=== PATIENT | female | born 1960 | race Caucasian/White ===

== ENCOUNTER 2019-03-28 23:02 | Emergency (ER) | payer SELFPAY ==
--- NOTE | 2019-03-28 23:28 | ER Document Report ---
ED General - General Stated Complaint: POSSIBLE OVERDOSE Time Seen by Provider: 03/28/19 23:12 Notes: She is a 58-year-old female who comes in overdosing on Klonopin and drinking some alcohol. Patient says that she is been going through divorce for 3 years. She says her continues to arouse her. She does admit to writing a note where she has written saying that she was "sorry it would in this way". When asked if she was suicidal she says "not really suicidal I was just trying get attention." She does admit that she took three to four 2 mg Klonopin around 9 PM. She did drink some alcohol as well. She currently denies any difficulty breathing but is very tearful and admits to being upset depressed at this time. - Related Data Allergies/Adverse Reactions: Iodinated Contrast- Oral and IV Dye Allergy (Verified 03/29/19 00:29) Past Medical History - Social History Smoking Status: Unknown if Ever Smoked Frequency of alcohol use: Occasional Drug Abuse: Prescription drugs Family History: Reviewed & Not Pertinent Review of Systems - Review of Systems Notes: My Normal Review Basic REVIEW OF SYSTEMS: CONSTITUTIONAL : Denies fever, chills, or sweats. Denies recent illness. EENT: Denies eye, ear, throat, or mouth pain or symptoms. Denies nasal or sinus congestion. CARDIOVASCULAR: Denies chest pain. RESPIRATORY: Denies cough, cold, or chest congestion. Denies shortness of breath, difficulty breathing, or wheezing. GASTROINTESTINAL: Denies abdominal pain. Denies nausea, vomiting, or diarrhea. MUSCULOSKELETAL: Denies neck or back pain or joint pain or swelling. SKIN: Denies rash or skin lesions. NEUROLOGICAL: Denies altered mental status or loss of consciousness. Denies headache. Denies weakness or paralysis or loss of use of either side. Denies problems with gait or speech. Denies sensory or motor loss. PSYCHIATRIC: Depression ALL OTHER SYSTEMS REVIEWED AND NEGATIVE. Physical Exam - Vital signs Vitals: Temp 98.3 F 03/28/19 23:02 - Notes Notes: General Appearance: Well nourished, alert, cooperative, no acute distress, no obvious discomfort. Vitals: reviewed, See vital signs table. Head: no swelling or tenderness to the head Eyes: PERRL, EOMI, Conjuctiva clear Mouth: No decreasd moisture Lungs: No wheezing, No rales, No rhonci, No accessory muscle use, good air exchange bilaterally. Heart: Normal rate, Regular rythm, No murmur, no ru Extremities: strength 5/5 in all extremities, good pulses in all extremities, no swelling or tenderness in the extremities, no edema. Skin: warm, dry, appropriate color, no rash Neuro: Patient is slow and a little bit slurred. She is able move all extremities without difficulty. Cranial nerves II through XII are intact except for the slurred speech. Psychiatric: Patient is teary-eyed, obviously upset emotionally. Course - Re-evaluation Re-evalutation: 03/29/19 06:06 Patient is watched for until 8 hours after she took medications. Her speech is clear. She is walking well with any difficulties. She is clinically sober. Her friend is at bedside. No abnormal somnolent. She said no respiratory depression. Oxygenation has been normal. I approach her again about her depression if any thoughts of suicide. Patient says that she is not at all suicide. She is actually anxious to leave but she needs to get to work this morning. She again says that she did this in order to get attention from her son in regards to what is going on with her current divorce with her . She does says that she is not to speak with mental health at this time. I informed her that she is more welcome to return to ER anytime if she has worsening depression or any thoughts of suicide as want to help her in any way we can. She patient is agreeable with this. Patient will be discharged home with again being encouraged to return to ER if she has any thoughts of wanting herself, worsening depression, or she feels unwell. Dictation of this chart was performed using voice recognition software; therefore, there may be some unintended grammatical errors. - Vital Signs Vital signs: Temp Pulse Resp BP Pulse Ox 98.5 F 17 123/78 97 03/29/19 05:36 03/29/19 05:01 03/29/19 05:01 03/29/19 05:01 - Laboratory Result Diagrams: 03/28/19 23:46 03/28/19 23:46 Laboratory results interpreted by me: 03/28/19 03/28/19 03/28/19 23:14 23:46 23:46 MCH 33.5 H Seg Neutrophils % 41.0 L Lymphocytes % 47.1 H Sodium 148.5 H Potassium 3.5 L Chloride 111 H Urine Blood MODERATE H Salicylates < 1.0 L Acetaminophen < 10 L - EKG Interpretation by Me Additional EKG results interpreted by me: 03/28/19 23:56 EKG is reviewed and interpreted by me. EKG shows sinus rhythm with a rate of [address] segment elevation or depression. No ischemic T wave inversions. MA interval, QRS duration, QT intervals are within normal range. No old EKG available for comparison. Discharge - Discharge Clinical Impression: Depression Qualifiers: Depression Type: unspecified Qualified Code(s): F32.9 - Major depressive disorder, single episode, unspecified Overdose Qualifiers: Encounter type: initial encounter Injury intent: undetermined intent Qualified Code(s): T50.904A - Poisoning by unspecified drugs, medicaments and biological substances, undetermined, initial encounter Condition: Good Disposition: HOME, SELF-CARE Additional Instructions: Please do not take more medications than what is prescribed. Please follow-up with your doctor for reevaluation. Please feel free to return to ER anytime if you are struggling with depression and want help. Please return to ER immediately if you have worsening depression, thoughts of suicide, or feel unwell in any way. Return to the ER if you are having difficulty breathing or feel more sleepy than normal.
[2019-03-28 23:51] LABS: APPEARANCE,URINE SLIGHTLY-CLOUDY; BILIRUBIN,URINE NEGATIVE (NEGATIVE); COLOR,URINE STRAW; GLUCOSE, URINE NEGATIVE (NEGATIVE); KETONES,URINE NEGATIVE (NEGATIVE); LEUKOCYTE ESTERASE,URINE NEGATIVE (NEGATIVE); NITRITE,URINE NEGATIVE (NEGATIVE); PROTEIN,URINE NEGATIVE (NEGATIVE); URINE SPECIFIC GRAVITY 1.004; UROBILINOGEN,URINE NEGATIVE mg/dL (<2.0)
[2019-03-29 00:06] LABS: URINE AMPHETAMINES SCREEN NEGATIVE; URINE BARBITURATES SCREEN NEGATIVE; URINE BENZODIAZEPINES SCREEN NEGATIVE; URINE COCAINE SCREEN NEGATIVE; URINE MARIJUANA (THC) SCREEN NEGATIVE; URINE METHADONE SCREEN NEGATIVE; URINE PHENCYCLIDINE SCREEN NEGATIVE
[2019-03-29 00:12] LABS: ABSOLUTE EOSINOPHILS # (AUTO) 0.2 10^3/uL (0.0-0.6); ABSOLUTE LYMPHOCYTES (AUTO) 2.8 10^3/uL (0.5-4.7); ABSOLUTE MONOCYTES (AUTO) 0.4 10^3/uL (0.1-1.4); ABSOLUTE NEUT (AUTO) 2.5 10^3/uL (1.7-8.2); BASOPHILS % (AUTO) 0.8 % (0-2); EOSINOPHILS % (AUTO) 3.9 % (0-6); HEMATOCRIT 44.5 % (36.0-47.0); HEMOGLOBIN 15.4 g/dL (12.0-15.5); LYMPHOCYTES % (AUTO) 47.1 % (13-45); MEAN CORPUSCULAR HEMOGLOBIN 33.5 pg (27.0-33.4); MEAN CORPUSCULAR HGB CONC 34.6 g/dL (32.0-36.0); MEAN CORPUSCULAR VOLUME 97 fl (80-97); MONOCYTES % (AUTO) 7.2 % (3-13); PLATELET COUNT 212 10^3/uL (150-450); RED BLOOD COUNT 4.61 10^6/uL (3.72-5.28); RED CELL DISTRIBUTION WIDTH 13.2 % (11.5-14.0); TOTAL CELLS COUNTED % (AUTO) 100 %
[2019-03-29] MEDS ORDERED: NICOTINE 21 MG/24 HR PATCH.TD24 TD ONE (00:22)
[2019-03-29 00:32] LABS: ALANINE AMINOTRANSFERASE 18 U/L (9-52); ALBUMIN 4.1 g/dL (3.5-5.0); ALCOHOL 170 mg/dL (NONE DETECTED); ALKALINE PHOSPHATASE 81 U/L (38-126); ANION GAP 9 (5-19); ASPARTATE AMINO TRANSFERASE 18 U/L (14-36); BILIRUBIN,DIRECT 0.3 mg/dL (0.0-0.4); BILIRUBIN,TOTAL 0.3 mg/dL (0.2-1.3); BLOOD UREA NITROGEN 7 mg/dL (7-20); CALCIUM 9.5 mg/dL (8.4-10.2); CARBON DIOXIDE 29 mmol/L (22-30); CHLORIDE 111 mmol/L (98-107); GLUCOSE 88 mg/dL (75-110); POTASSIUM 3.5 mmol/L (3.6-5.0); SODIUM 148.5 mmol/L (137-145); TOTAL PROTEIN 6.9 g/dL (6.3-8.2)
[2019-03-29 00:39] LABS: ACETAMINOPHEN < 10 ug/mL (10-30); SALICYLATE < 1.0 mg/dL (2.0-20.0)
[2019-03-29 05:16] VITALS: BP 123/78
--- NOTE | 2019-03-29 08:17 | EKG REPORT ---
SEVERITY:- NORMAL ECG - SINUS RHYTHM : Confirmed by: Graeme Camacho MD 29-Mar-2019 08:16:35
== END 2019-03-29 05:36 | disposition home or self-care (01) ==
LOC: ER 23:02
DX: T42.4X4A Poisoning by benzodiazepines, undetermined, initial encounter (principal); F32.9 Major depressive disorder, single episode, unspecified; Z63.5 Disruption of family by separation and divorce; Z91.040 Latex allergy status
CPT/HCPCS: 36415; 80053; 80307; 81001; 85025; 93005; 93010; 99284